=== PATIENT | male | born 1990 | race Caucasian/White ===

== ENCOUNTER 2017-06-15 17:45 | Emergency (ER) | payer BC, OTHER ==
[2017-06-15 17:56] VITALS: BP 131/80; PULSE 85; RESP 20; TEMP 98.5
--- NOTE | 2017-06-15 18:01 | ED ---
Skin/Abscess/FB HPI - General Chief complaint: Skin/Abscess/Foreign Body Stated complaint: thumb lac-[facility] Time Seen by Provider: 06/15/17 17:59 Source: patient, RN notes reviewed Mode of arrival: ambulatory Limitations: no limitations - History of Present Illness Initial comments: 26-year-old male presents emergency Department for possible blood borne pathogen exposure. 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 He is up-to-date on his vaccinations. Patient does not believe this was a needle but is unsure how this was caused. Patient was taking care of all her person that is an IV drug user. - Related Data Home Medications Medication Instructions Recorded Confirmed No Known Home Medications [No 06/15/17 06/15/17 Known Home Medications] Allergies Allergy/AdvReac Type Severity Reaction Status Date / Time No Known Allergies Allergy Verified 06/15/17 17:53 Review of Systems ROS Statement: Those systems with pertinent positive or pertinent negative responses have been documented in the HPI. ROS Other: All systems not noted in ROS Statement are negative. Past Medical History Past Medical History: No Reported History History of Any Multi-Drug Resistant Organisms: None Reported Additional Past Surgical History / Comment(s): hand surgery Past Psychological History: No Psychological Hx Reported Smoking Status: Never smoker Past Alcohol Use History: None Reported Past Drug Use History: None Reported General Exam Limitations: no limitations General appearance: alert, in no apparent distress Head exam: Present: atraumatic, normocephalic, normal inspection Respiratory exam: Present: normal lung sounds bilaterally. Absent: respiratory distress, wheezes, rales, rhonchi, stridor Cardiovascular Exam: Present: regular rate, normal rhythm, normal heart sounds. Absent: systolic murmur, diastolic murmur, rubs, gallop, clicks Extremities exam: Present: other (Left arm there is a small abrasion noted on the dorsal aspect) Course Vital Signs 06/15/17 17:53 Temperature 98.5 F Pulse Rate 85 Respiratory 20 Rate Blood Pressure 131/80 O2 Sat by Pulse 98 Oximetry Medical Decision Making - Medical Decision Making 26-year-old male presented for possible exposure. This a low likelihood as there is no known blood from other patient. This most likely just an abrasion potassium will be provided. Disposition Clinical Impression: Skin abrasion, Exposure to blood or body fluid Disposition: HOME SELF-CARE Condition: Stable Instructions: Body Substance Exposure (ED) Additional Instructions: Please return to the Emergency Department if symptoms worsen or any other concerns. Referrals: Geri Thomas DO [Primary Care Provider] - 1-2 days Time of Disposition: 18:00
== END 2017-06-15 18:22 | disposition home or self-care (01) ==
LOC: EC 17:45
DX: S60.312A Abrasion of left thumb, initial encounter (principal); Z77.21 Contact with and (suspected) exposure to potentially hazardous body fluids; X58.XXXA Exposure to other specified factors, initial encounter; Y92.69 Other specified industrial and construction area as the place of occurrence of the external cause
CPT/HCPCS: 99282